=== PATIENT | male | born 1980 | race African-American/Black ===

== ENCOUNTER 2018-01-03 17:31 | Emergency (ER) | payer MEDICAID ==
[~2018-01-03] VITALS: Ht 185.4 cm; Wt 72.6 kg
[2018-01-03] MEDS ORDERED: LIDOCAINE700 M1 TP (18:24)
[2018-01-03] MEDS ORDERED: IBUPROFEN600 MG ORAL (18:24)
[2018-01-03] MEDS ORDERED: ROBAXIN500 MG PO (18:24)
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
[2018-01-03 18:46] VITALS: BP 119/68
[2018-01-03 18:48] VITALS: BP 119/68
== END 2018-01-03 18:48 | disposition home or self-care (01) ==
LOC: EMR 18:46
DX: M54.2 Cervicalgia (principal); M25.512 Pain in left shoulder; V43.62XA Car passenger injured in collision with other type car in traffic accident, initial encounter; Y92.410 Unspecified street and highway as the place of occurrence of the external cause
CPT/HCPCS: 99284